=== PATIENT | female | born 1945 | race Caucasian/White ===

== ENCOUNTER 2025-04-21 13:30 | Inpatient (IN) | payer MEDICARE, OTHER ==
[~2025-04-21] VITALS: Ht 152.4 cm; Wt 57.2 kg
[2025-04-21 13:34] VITALS: BP 155/81
[2025-04-21] MEDS ORDERED: MEMA10TA PO (13:49)
[2025-04-21] MEDS ORDERED: MELA5TAB20 PO (13:49)
[2025-04-21] MEDS ORDERED: CHOL10005 PO (13:49)
[2025-04-21] MEDS ORDERED: ESCI10TA PO (13:49)
[2025-04-21 14:02] LABS: PLATELET COUNT (AUTO) 196 K/uL (179-408); RED BLOOD CELL COUNT(AUTO) 3.90 MIL/uL (3.63-4.92); RED CELL DISTRIBUTION WIDTH 13.0 % (12.3-17.7); WHITE BLOOD COUNT (AUTO) 7.0 K/uL (3.8-11.8)
[2025-04-21] MEDS: IV NORMAL SALINE 500 ML BAG IV ONE (14:09)
[2025-04-21 14:17] LABS: CREATININE 0.6 mg/dL (0.6-1.3); SODIUM SERUM 141 mmol/L (136-145); UREA NITROGEN, BLOOD 27 mg/dL (7-18)
[2025-04-21 14:23] LABS: ASPARTATE AMINOTRANSFERASE 15 U/L (15-37); TOTAL PROTEIN, SERUM 6.8 g/dL (6.4-8.2)
[2025-04-21] MEDS ORDERED: HYDROCODONE/APAP 5-325MG TABLET PO PRN (14:30)
[2025-04-21] MEDS ORDERED: ONDANSETRON 4 MG/2 ML VIAL IV PRN (14:30)
[2025-04-21] MEDS ORDERED: MAGNESIUM HYDROXIDE 30 ML LIQUID UDC PO PRN (14:30)
[2025-04-21] MEDS ORDERED: REMEDY ESSENTIAL ZINC PASTE 113 GM TP PRN (14:30)
[2025-04-21 15:48] LABS: *BILIRUBIN,URIN NEGATIVE (NEGATIVE); *BLOOD, URINE 1+ (NEGATIVE); *CLARITY,URINE CLEAR (CLEAR); *COLOR,URINE YELLOW (YELLOW); *KETONES,URINE NEGATIVE (NEGATIVE); *PROTEIN,URINE NEGATIVE (NEGATIVE); *UROBILINOGEN,URINE 0.2 E.U./dl (NORMAL); LEUKOCYTE ESTERASE ,URINE NEGATIVE (NEGATIVE); NITRITE, URINE NEGATIVE (NEGATIVE); UGLUCOSE NEGATIVE (NEGATIVE)
[2025-04-21 16:20] VITALS: BP 150/72; TEMP 98.4; O2SAT 96
[2025-04-21 16:25] LABS: SQUAMOUS EPITHELIAL CELL,UR FEW /HPF (NONE SEEN)
[2025-04-21] MEDS ORDERED: MELA10CA PO (17:43)
[2025-04-21 19:30] VITALS: BP 128/65; TEMP 98.3; O2SAT 96
[2025-04-21] MEDS: ENOXAPARIN SODIUM 40 MG/0.4 ML DISP.SYRIN SQ SCH (20:37)
[2025-04-21] MEDS: ACETAMINOPHEN 325 MG TABLET PO PRN (22:48)
[2025-04-22 06:21] VITALS: BP 142/62; TEMP 96.6; O2SAT 96
[2025-04-22 06:50] LABS: PLATELET COUNT (AUTO) 172 K/uL (179-408); RED BLOOD CELL COUNT(AUTO) 3.82 MIL/uL (3.63-4.92); RED CELL DISTRIBUTION WIDTH 13.2 % (12.3-17.7); WHITE BLOOD COUNT (AUTO) 5.3 K/uL (3.8-11.8)
[2025-04-22 07:05] LABS: CREATININE 0.7 mg/dL (0.6-1.3); SODIUM SERUM 142 mmol/L (136-145); UREA NITROGEN, BLOOD 21 mg/dL (7-18)
[2025-04-22] MEDS: CHOLECALCIFEROL 400 UNITS TABLET PO SCH (08:14)
[2025-04-22] MEDS: MEMANTINE HCL 10 MG TABLET PO SCH (08:14)
[2025-04-22] MEDS: ESCITALOPRAM OXALATE 10 MG TABLET PO SCH (08:14)
[2025-04-22 12:00] VITALS: BP 133/66; TEMP 97.8; O2SAT 99
[2025-04-22] MEDS: LORAZEPAM 0.5 MG TABLET PO PRN (15:39)
[2025-04-22 16:00] VITALS: BP 132/66; TEMP 97.7; O2SAT 99
[2025-04-22 19:52] VITALS: BP 116/59; TEMP 97.9; O2SAT 98
[2025-04-22] MEDS: LORAZEPAM 0.5 MG TABLET PO ONE (22:44)
[2025-04-23 06:59] VITALS: BP 156/73; TEMP 97.8; O2SAT 100
[2025-04-23 10:36] VITALS: BP 133/67; TEMP 97.5; O2SAT 99
[2025-04-23 15:45] VITALS: BP 112/55; TEMP 97.6; O2SAT 97
[2025-04-23 19:43] VITALS: BP 138/59; TEMP 97.9; O2SAT 99
[2025-04-24 05:23] VITALS: BP 124/54; TEMP 97.6; O2SAT 97
[2025-04-24 10:50] VITALS: BP 110/58; TEMP 97.4; O2SAT 99
[2025-04-27 08:12] LABS: METHYLMALONIC ACID 215 nmol/L (0-378)
== END 2025-04-24 12:45 | DRG 641 ==
LOC: ER 13:30 → MEDSURG3 15:28
DX: R62.7 Adult failure to thrive (principal); F03.93 Unspecified dementia, unspecified severity, with mood disturbance; F03.92 Unspecified dementia, unspecified severity, with psychotic disturbance; F03.94 Unspecified dementia, unspecified severity, with anxiety; R32 Unspecified urinary incontinence; Z74.1 Need for assistance with personal care; R26.2 Difficulty in walking, not elsewhere classified; F32.A Depression, unspecified; E03.8 Other specified hypothyroidism; E78.5 Hyperlipidemia, unspecified; R53.1 Weakness; I10 Essential (primary) hypertension; N81.4 Uterovaginal prolapse, unspecified; Z79.899 Other long term (current) drug therapy; Z75.1 Person awaiting admission to adequate facility elsewhere
CPT/HCPCS: 36415; 70450; 71045; 83735; 83921; 84100; 84443; 84484; 85025; A4606; A4663; G0378; J1650; J7040